=== PATIENT | female | born 1980 | race Caucasian/White ===

== ENCOUNTER → 2018-02-09 17:08 | Outpatient (CLI) | payer OTHER, SELFPAY ==
--- NOTE | 2018-02-09 | DI.MRI.S_ITS ---
PROCEDURE: MR ELBOW RT WO CON INDICATIONS: 37 year-old female with right elbow pain after crossfit injury one month ago. TECHNIQUE: Noncontrast coronal proton density fast spin echo and T2 fast spin echo with fat saturation, axial and sagittal T1 spin echo and T2 fast spin echo with fat saturation through the elbow. COMPARISON: [facility] [place], CR, XR ELBOW 3+ VIEWS RIGHT, 01/31/2018, 15:34. FINDINGS: Image quality: Excellent. Lateral structures: The lateral ulnar collateral ligament and radial collateral ligament both appear intact. The overlying common extensor tendon also appears normal. On sagittal image 10 and axial image 15, note is made of a prominent posterior synovial fold in the radiocapitellar compartment. Medial structures: The ulnar collateral ligament appears intact. The overlying common flexor tendon appears normal. The ulnar nerve appears normal in size and signal within the cubital tunnel. Anterior structures: The biceps and brachialis tendons both appear intact as they insert onto the proximal radius and ulna, respectively. No bicipitoradial bursal fluid. The median and radial neurovascular bundles appear normal; no focal muscle atrophy to suggest nerve impingement. Posterior structures: The conjoint triceps tendon from the long and lateral heads appears intact. The medial head of the triceps tendon also appears normal, with direct muscle insertion onto the olecranon. No olecranon bursal fluid. Bone and cartilage: No bone marrow contusions or fractures. No osteochondral injuries. IMPRESSION: 1. No acute internal derangement of the right elbow. 2. 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 Dictated by: Bill Vang M.D. on 02/10/2018 at 8:40 Approved by: Bill Vang M.D. on 02/10/2018 at 8:48
== END ==
PROVIDERS: PCP Family Medicine; Visit Provider Orthopaedic Surgery
DX: M25.521 Pain in right elbow (principal)
CPT/HCPCS: 73222

== ENCOUNTER → 2018-06-20 13:06 | Outpatient (CLI) | payer OTHER, SELFPAY ==
--- NOTE | 2018-06-20 13:08 | DI.RAD.S_ITS ---
PROCEDURE: XR CHEST 2V INDICATIONS: cough TECHNIQUE: 2 views of the chest were acquired. COMPARISON: None. FINDINGS: Surgical changes and devices: None. Lungs and pleura: No pleural effusions or pneumothorax. Lungs are clear. Mediastinum: Mediastinal contours are normal. Heart size is normal. Bones and chest wall: No suspicious bony abnormalities. Soft tissues appear unremarkable. IMPRESSION: No acute disease Dictated by: Liang Leigh M.D. on 06/20/2018 at 17:29 Approved by: Liang Leigh M.D. on 06/20/2018 at 17:30
== END ==
PROVIDERS: PCP Family Medicine; Visit Provider Physician Assistant
DX: R05 Cough (principal)
CPT/HCPCS: 71046

== ENCOUNTER → 2020-01-18 15:41 | Outpatient (CLI) | payer OTHER, SELFPAY ==
[2020-01-18 16:42] LABS: Appearance Urine UA CLEAR; Bilirubin Urine UA NEGATIVE (NEGATIVE); Color Urine UA YELLOW; Glucose Urine UA NEGATIVE (Negative); Ketones Urine UA 1+ (NEGATIVE); Leukocyte Esterase Urine UA NEGATIVE (NEGATIVE); Nitrite Urine UA POSITIVE (Negative); Occult Blood Urine UA TRACE-LYSED (Negative); Protein Urine UA NEGATIVE (Negative); Urobilinogen Urine UA 0.2 E.U./dL (0.2)
[2020-01-18 17:07] LABS: pH Urine UA 5.5 (4.5-8.0)
[2020-01-18 17:08] LABS: Bacteria Urine Many (>30); Culture Indicated Urine Specimen Cultured; RBC Urine 1-5/HPF (0-5/HPF); Squamous Epithelial Cell Urine 1-5 /HPF (0-5/HPF); WBC Urine 1-5/HPF (0-5/HPF)
== END ==
PROVIDERS: PCP Family Medicine; Visit Provider Nurse Practitioner Family
DX: R10.2 Pelvic and perineal pain (principal); R35.0 Frequency of micturition
CPT/HCPCS: 81001; 87077; 87086; 87186

== ENCOUNTER → 2020-01-23 15:35 | Outpatient (CLI) | payer OTHER, SELFPAY | PROVIDERS: PCP Family Medicine; Visit Provider Nurse Practitioner Family | DX: N39.0 Urinary tract infection, site not specified (principal) | CPT/HCPCS: 87077; 87086 ==

== ENCOUNTER → 2020-05-24 13:09 | Outpatient (CLI) | payer OTHER, SELFPAY | PROVIDERS: PCP Family Medicine; Visit Provider Nurse Practitioner | DX: R30.0 Dysuria (principal); R10.9 Unspecified abdominal pain | CPT/HCPCS: 87086 ==

== ENCOUNTER → 2020-05-26 16:27 | Outpatient (CLI) | payer OTHER, SELFPAY ==
[2020-05-26 17:33] LABS: Add Manual Diff / Slide Review NO; Basophils Absolute Auto 0 /uL (0-100); Basophils Percent Auto 0.3 % (0-2); Eosinophils Absolute Auto 200 /uL (0-450); Eosinophils Percent Auto 2.5 % (2-4); Hematocrit 36.7 % (36-46); Hemoglobin 12.2 g/dL (12.0-16.0); Lymphocytes Absolute Auto 2000 /uL (1100-4500); Lymphocytes Percent Auto 24.3 % (25-40); Mean Corpuscular HGB Conc 33.3 % (30-36); Mean Corpuscular Hemoglobin 30.9 PG (26-34); Mean Corpuscular Volume 92.8 fL (80-100); Monocytes Absolute Auto 500 /uL (0-900); Monocytes Percent Auto 6.2 % (3-14); Neutrophils Absolute Auto 5600 /uL (1500-7000); Neutrophils Percent Auto 66.7 % (50-75); Platelet Count 258 X10^3/uL (150-400); Red Blood Cell Count 3.95 X10^6/uL (4.0-5.2); Red Cell Distribution Width 14.3 % (11.6-14.8); White Blood Cell Count 8.4 X10^3/uL (4.5-11.0)
[2020-05-26 18:06] LABS: Lipase 53 U/L (23-300)
[2020-05-26 18:07] LABS: Alanine Aminotransferase 34 IU/L (<35); Albumin Globulin Ratio 1.4 (1.0-2.8); Alkaline Phosphatase 61 U/L (38-126); Aspartate Aminotransferase 34 IU/L (14-36); BUN Creatinine Ratio 18.5 (6-22); Bilirubin Total 0.3 mg/dL (0.2-1.3); Blood Urea Nitrogen 17 mg/dL (7-17); Calcium 8.9 mg/dL (8.4-10.2); Carbon Dioxide 29 mmol/L (22-32); Chloride 102 mmol/L (98-107); Estimated Glomerular Filt Rate > 60.0 mL/min (>60); Globulin 2.9 g/dL (1.7-4.1); Glucose 107 mg/dL (70-100); HEMOLYSIS < 15 (0-50); Potassium 3.9 mmol/L (3.4-5.1); Sodium 138 mmol/L (137-145); Total Protein 6.9 g/dL (6.3-8.2)
== END ==
PROVIDERS: PCP Family Medicine; Referring Provider Nurse Practitioner; Visit Provider Nurse Practitioner
DX: R10.9 Unspecified abdominal pain (principal)
CPT/HCPCS: 36415; 80053; 83690; 85025

== ENCOUNTER → 2020-06-04 15:13 | Outpatient (CLI) | payer OTHER, SELFPAY ==
--- NOTE | 2020-06-04 15:14 | DI.CT.S_ITS ---
PROCEDURE: CT KIDNEY URETER BLADDER (KUB) INDICATIONS: left flank pain, suspect stone TECHNIQUE: Noncontrast 5 mm thick sections acquired from the diaphragms to the symphysis. 5 mm thick coronal and sagittal reformats were then performed. For radiation dose reduction, the following was used: automated exposure control, adjustment of mA and/or kV according to patient size. COMPARISON: None. FINDINGS: Image quality: Excellent. Lung bases: Lung bases are clear. No pleural effusion. Heart size is normal. Urinary system: Both kidneys are normal in size. No kidney stones. No hydronephrosis or perinephric fat stranding. Both ureters appear non-dilated throughout their expected courses. Bladder is mostly decompressed; no calcified bladder stones. Other solid organs: Liver is normal in size. Gallbladder is unremarkable. Pancreas is normal in contours. Spleen is normal in size. No adrenal nodules. Peritoneum and bowel: Unenhanced bowel loops demonstrate normal wall thickness and caliber. A few colonic diverticuli. Appendix is normal in caliber. No free fluid or air. Nodes and vessels: No retroperitoneal or mesenteric adenopathy by size criteria. Aorta and inferior vena cava are normal in caliber. Abdominal wall: No significant ventral hernias. Pelvis: No free pelvic fluid. No inguinal hernias or adenopathy. IUD centered in the uterus. Cyst in the left paramedian pelvis measuring 4.9 x 3.8 cm, (). Bones: No suspicious bony lesions. No vertebral body compression fractures. IMPRESSION: 1. No kidney stones. No hydronephrosis. 2. A few sigmoid colonic diverticuli. No diverticulosis identified. 3. Paramedian pelvic cyst measuring up to 4.9 cm. This most likely represents a left ovarian cyst. This could be the source of the patient's left-sided pain. -consider further evaluation with pelvic ultrasound. 4. No free fluid. 5. IUD centered in the uterus. Dictated by: Chava Jennings M.D. on 06/04/2020 at 15:46 Approved by: Chava Jennings M.D. on 06/04/2020 at 15:53
== END ==
PROVIDERS: PCP Family Medicine; Referring Provider Family Medicine; Visit Provider Family Medicine
DX: R10.9 Unspecified abdominal pain (principal); K57.30 Diverticulosis of large intestine without perforation or abscess without bleeding; N94.89 Other specified conditions associated with female genital organs and menstrual cycle; Z97.5 Presence of (intrauterine) contraceptive device
CPT/HCPCS: 74176

== ENCOUNTER → 2020-06-06 08:09 | Outpatient (CLI) | payer OTHER, SELFPAY ==
--- NOTE | 2020-06-06 08:10 | DI.US.S_ITS ---
PROCEDURE: US PELVIC COMPLETE INDICATIONS: ovarian cyst/pelvic discomfort TECHNIQUE: Real-time scanning was performed of the pelvic organs, with image documentation. Additional endovaginal scanning was necessary due to incomplete visualization of the adnexal and endometrial structures by transabdominal scanning. COMPARISON: [facility], CT, CT KIDNEY URETER BLADDER (KUB), 06/04/2020, 15:15. FINDINGS: Transabdominal scanning: Limited scanning through the kidneys shows no hydronephrosis. No pathologic free abdominal or pelvic fluid. Endovaginal scanning: Uterus: Uterus is normal in size at 7.1 x 4.8 x 3.3 cm. The endometrium measures 3.5 mm in combined thickness. An IUD is in satisfactory position. Ovaries: Right ovary measures 2.7 x 3.0 x 1.4 cm. Left ovary measures 5.3 x 4.2 x 5.1 cm. There is a simple left ovarian cyst measuring 4.8 x 4.0 x 4.4 cm. There is duplex arterial and venous flow seen in the left ovary. IMPRESSION: 1. IUD. 2. 4.8 cm maximum diameter simple cyst of the left ovary. No evidence of left ovarian torsion. Comment: SRU consensus statement on ovarian cysts recommends that in premenopausal females, ovarian cysts of less than 5 cm do not require further workup in the absence of symptoms. This Society recommends yearly ultrasound follow up of cysts of greater than 5 cm. This cyst is near the cutoff. In the absence of symptomatology, 12 month follow-up ultrasound might potentially be considered. Dictated by: Galileo Wang M.D. on 06/06/2020 at 9:11 Approved by: Galileo Wang M.D. on 06/06/2020 at 9:21
== END ==
PROVIDERS: PCP Family Medicine; Referring Provider Family Medicine; Visit Provider Family Medicine
DX: N83.292 Other ovarian cyst, left side (principal); Z97.5 Presence of (intrauterine) contraceptive device
CPT/HCPCS: 76856

== ENCOUNTER → 2020-06-12 17:17 | Outpatient (CLI) | payer OTHER, SELFPAY ==
--- NOTE | 2020-06-12 17:28 | DI.MG.S_ITS ---
BILATERAL DIGITAL SCREENING MAMMOGRAM 3D/2D WITH CAD: 06/12/2020 CLINICAL: Routine screening. Baseline exam. Family history of breast cancer. No prior exams were available for comparison. The tissue of both breasts is heterogeneously dense. This may lower the sensitivity of mammography. Current study was also evaluated with a Computer Aided Detection (CAD) system. No significant masses, calcifications, or other findings are seen in either breast. IMPRESSION: NEGATIVE There is no mammographic evidence of malignancy. A 1 year screening mammogram is recommended. This exam was interpreted at Station ID: [id number]. NOTE: For mammograms, a report in lay terms will be sent to the patient. Approximately 15% of breast malignancies will not be visualized mammographically. In the management of a palpable breast mass, a negative mammogram must not discourage biopsy of a clinically suspicious lesion. Electronically Signed By: Monica pena/padilla:06/13/2020 10:07:45 letter sent: Normal Exam ACR BI-RADS Category 1: Negative [id number]
== END ==
PROVIDERS: Family Provider Family Medicine; PCP Family Medicine; Referring Provider Family Medicine; Visit Provider Family Medicine
DX: Z12.31 Encounter for screening mammogram for malignant neoplasm of breast (principal); Z80.3 Family history of malignant neoplasm of breast
CPT/HCPCS: 77063; 77067

== ENCOUNTER → 2020-06-24 15:40 | Outpatient (CLI) | payer OTHER, SELFPAY ==
[2020-06-25 06:45] LABS: COVID19 Sendout Not Detected (Not Detect)
== END ==
PROVIDERS: Family Provider Family Medicine; PCP Family Medicine; Visit Provider Physician Assistant
DX: Z01.812 Encounter for preprocedural laboratory examination (principal)
CPT/HCPCS: 87635

== ENCOUNTER 2020-06-27 09:09 | Day surgery (SDC) | payer OTHER, SELFPAY ==
[2020-06-24 15:22] VITALS: BMI 31.4
[2020-06-27] VITALS (8 sets, daily range): BP systolic 107–121; BP diastolic 47–72; PULSE 70–105; RESP 10–18; TEMP 36.6–37.1; O2SAT 94–99; BMI 31.4
--- NOTE | 2020-06-27 | PATH_ITS ---
[facility] Accession Number: [id number] . 01 Material submitted: . PART A: FALLOPIAN/OVARY - LEFT OVARY AND FALLOPIAN TUBE PART B: peritoneum - PERITONEAL . 02 Diagnosis: A. Left Ovary and Fallopian Tube, Salpingo-oophorectomy: Benign ovary with cystic corpus luteum. Fallopian tube with no diagnostic abnormality. No evidence of neoplasia. . B. Peritoneum, Biopsy: Endometriosis. [facility] 07/02/2020 1559 Local . 02 Electronically signed: . Belén Jacob MD, Pathologist NPI- [id number] . 01 Gross description: . A. The specimen is received in formalin, labeled left ovary and fallopian tube, and consists of a 6 g, 4.0 x 2.5 x 1.5 cm intact ovary with a eng to eng-pink cerebriform capsule. Sectioning reveals a 2.0 x 1.5 x 1.2 cm, eng-pink, smooth-walled cyst which displays a eng pink, smooth inner lining with no papillary excrescences. Remaining ovarian stroma is eng-pink with corpora albicantia. Received are two segments of fallopian tube measuring 2.5 cm in length by 0.5 cm in diameter (in aggregate). The serosa is eng-pink and smooth. Sectioning reveals a eng mucosa and a stellate lumen measuring 0.1 cm in diameter. Parachute Cushion Installer sections are submitted. . A1-A2: Parachute Cushion Installer ovarian cyst. A3: Fallopian tube, entirely submitted with bisected fimbria. . B. The specimen is received in formalin, labeled peritoneal biopsy, and consists of a 3.0 x 1.2 x 0.5 cm, pink-white, membranous fragment of soft tissue which is serially sectioned and entirely submitted in cassette B1. ([id number]) /FRR 06/28/2020 1804 Local . 02 Microscopic: . B. An immunohistochemical stain for CD10 was performed to characterize the cells of interest. CD10 positive cells are present around rare glands of interest consistent with endometrial stroma. The control stain showed appropriate reactivity. . * This test was developed and its performance characteristics determined by [facility]. It has not been cleared or approved by the U.S. Food and Drug Administration. The FDA has determined that such clearance or approval is not necessary. This test is used for clinical purposes. It should not be regarded as investigational or for research. . 02 Pathologist provided ICD-10: N80.9, N83.12 . 02 CPT . 265917, 690598, [id number] Performed at: 01 [facility], [facility] [address] [id number] MD Bay Lo MD Phone: [phone] Performed at: 02 [facility] [address] [place], [place] [id number] MD Belén Jacob MD Phone: [phone]
[2020-06-27] MEDS: LACTATED RINGERS 1,000 ML 100 ML IV ×2 (09:29→11:28)
--- NOTE | 2020-06-27 09:56 | PM.PREOP ---
Pre-operative Note COVID-19 COVID-19 status: Negative Result date/Date tested (Pos, Neg/Pending): 06/24/20 Interval Note History & Physical reviewed/Exam performed by Physician: Yes Changes to H&P: No
[2020-06-27] MEDS: ACETAMINOPHEN 325 MG TABLET 975 MG PO (09:57)
--- NOTE | 2020-06-27 10:46 | SUR.OPER ---
Lithotomy on padded OR bed, head on pillow, arms secured on padded arm boards at <90 degrees abduction. Legs secured in padded yellow fins stirrups.
--- NOTE | 2020-06-27 10:50 | SUR.OPER ---
dentures sent to pacu with patient
[2020-06-27] MEDS: BUPIVACAINE 0.5% W/ EPI (PF) 30 ML VIAL INJ (10:52)
--- NOTE | 2020-06-27 11:44 | PM.OP.1 ---
Operative Date/Time/Diagnoses Date of procedure: 06/27/20 Time of procedure: 11:44 Pre-op diagnosis: Left lower quadrant pain and left ovarian cyst Post-op diagnosis: other (Probable endometriosis, functional ovarian cyst, adhesions of the omentum to the anterior abdominal wall) Procedure & Clinicians Procedure: Laparoscopy, lysis of adhesions, left salpingo oophorectomy, biopsy of pelvic peritoneum Same procedure as scheduled: Yes Indications: Left lower quadrant pain with left ovarian cyst. Surgeon: Carey Ortega Click Yes if Unassisted: Yes Anesthesia Type: General Operative Notes Findings: Significant number of adhesions of the omentum to the anterior abdominal wall between the umbilicus and the pubic symphysis. These were lysed. Normal uterus, ovaries with right ovarian cyst and collapsing left ovarian cyst. Status post bilateral tubal ligation. Likely endometriosis in the left broad ligament Closure Type: primary Specimen(s): other (Left tube and ovary with peritoneal biopsy) Estimated Blood Loss (mL): 20 Blood products transfused: none Procedure in detail: Patient was brought to the operating room where she underwent general anesthesia. She was placed in low yellowfin stirrups and prepped and draped in usual sterile fashion. No antibiotics were indicated.. Pulsatile stockings were in place and functional. Warming was with blankets. A sponge stick was placed in the vagina. The area of the incisions were injected with half percent Marcaine with epinephrine. An incision was made in the umbilicus with a scalpel and the Verres needle placed in the abdomen. Confirmation of correct placement of the needle was performed by withdrawing on the syringe and then allowing fluid to fall freely through the needle. The abdomen was insufflated to 3 L of CO2. A 5 mm trocar was placed under direct visualization. A 5 mm trochars was placed in the right and left lower quadrant under direct visualization after incising the skin. The 5 mm umbilical trocar was replaced with an 11 mm trocar. There did not appear to be any damage with placement of the trocars. The PK generator was used to cauterize and cut the omentum that was adhesed to the anterior abdominal wall. The left infundibulopelvic ligament followed by the broad ligament was cauterized and cut allowing removal of the left tube and ovary. These were placed in an Endo-Catch bag and brought up through the 11 mm port at the umbilicus. These were removed without spillage. An area of the left broad ligament that appeared to be a deep endometriosis was grasped and cut with scissors. The sample was sent to pathology. Bleeding was stopped with the PK generator. An area of slight oozing near the ureter was treated with Surgicel. Adequate hemostasis was noted. The CO2 was allowed to escape from the abdomen. The trochars were removed. The umbilical incision fascial layer was repaired with a [id number] suture of 0 Vicryl suture. Skin was closed with 4-0 monocryl. The patient went to recovery room in good condition. Complications: none Post-operative Condition: stable Disposition: same day surgery Plan for aftercare: Home when awake and stable
[2020-06-27] MEDS: fentaNYL 100 MCG/2 ML INJ IV ×2 (11:46→11:58)
[2020-06-27] MEDS: OXYCODONE IR 5 MG TABLET PO ×2 (11:49→12:28)
--- NOTE | 2020-06-27 12:30 | SUR.PHASEI ---
Dr. Ortega came and spoke to pt about surgery. Pt medicated with fentanyl and percolone. To OPD, stable
== END 2020-06-27 12:55 | disposition home or self-care (01) ==
PROVIDERS: Family Provider Family Medicine; PCP Family Medicine; Referring Provider Family Medicine; Visit Provider Specialist
PROC: (CPT 58661; principal; 2020-06-27 10:15)
DX: N80.9 Endometriosis, unspecified (principal); K66.0 Peritoneal adhesions (postprocedural) (postinfection); F41.9 Anxiety disorder, unspecified; F32.9 Major depressive disorder, single episode, unspecified; J45.909 Unspecified asthma, uncomplicated; E66.9 Obesity, unspecified; Z68.34 Body mass index [BMI] 34.0-34.9, adult; N83.12 Corpus luteum cyst of left ovary
CPT/HCPCS: 58661; J1100; J1885; J2250; J2405; J2704; J3010

== ENCOUNTER → 2020-09-15 09:01 | Outpatient (CLI) | payer OTHER, SELFPAY ==
[2020-09-15 09:38] LABS: COVID19 -Nasal RAPID Negative (Negative)
== END ==
PROVIDERS: Family Provider Family Medicine; PCP Family Medicine; Visit Provider Physician Assistant
DX: Z20.822 Contact with and (suspected) exposure to COVID-19 (principal); J02.9 Acute pharyngitis, unspecified
CPT/HCPCS: 87070; 87077; 87147; 87635

== ENCOUNTER → 2020-09-26 16:23 | Outpatient (CLI) | payer OTHER, SELFPAY ==
--- NOTE | 2020-09-26 16:24 | DI.RAD.S_ITS ---
PROCEDURE: XR HIP W PEL IF DONE RT 2V INDICATIONS: acute R hip pain TECHNIQUE: AP pelvis with lateral view(s) of the right hip(s). COMPARISON: [facility], CT, CT KIDNEY URETER BLADDER (KUB), 06/04/2020, 15:15. FINDINGS: Bones: No fractures or dislocations. Pelvic ring appears intact. No suspicious bony lesions. Soft tissues: The visualized bowel gas pattern is normal. No suspicious soft tissue calcifications. Intrauterine device projected over the mid pelvis. . IMPRESSION: No definite radiographic abnormality. If pain persists with conservative management, consider cross sectional imaging such as CT or MRI for further assessment. Dictated by: Julio Cesar Amaya [facility] Interpreted: Robi Johnson MD on 09/26/2020 at 16:42 Approved by: Robi Johnson M.D. on 09/26/2020 at 16:55
== END ==
PROVIDERS: Family Provider Family Medicine; PCP Family Medicine; Referring Provider Family Medicine; Visit Provider Family Medicine
DX: M25.551 Pain in right hip (principal)
CPT/HCPCS: 73502

== ENCOUNTER → 2020-11-14 15:07 | Outpatient (CLI) | payer OTHER, SELFPAY | PROVIDERS: Family Provider Family Medicine; PCP Family Medicine; Visit Provider Registered Nurse | DX: M54.5 Low back pain (principal) | CPT/HCPCS: 87077; 87086; 87186 ==

== ENCOUNTER → 2020-12-09 16:23 | Outpatient (CLI) | payer OTHER, SELFPAY ==
[2020-12-09 16:37] LABS: Appearance Urine UA CLEAR; Bilirubin Urine UA NEGATIVE (NEGATIVE); Color Urine UA YELLOW; Glucose Urine UA NEGATIVE (Negative); Ketones Urine UA NEGATIVE (NEGATIVE); Leukocyte Esterase Urine UA NEGATIVE (NEGATIVE); Nitrite Urine UA NEGATIVE (Negative); Occult Blood Urine UA 1+ (Negative); Protein Urine UA NEGATIVE (Negative); Specific Gravity Urine UA 1.025 (1.000-1.035); Urobilinogen Urine UA 0.2 E.U./dL (0.2)
[2020-12-09 16:40] LABS: pH Urine UA 5.5 (4.5-8.0)
[2020-12-09 17:06] LABS: Bacteria Urine Moderate (10-30); Culture Indicated Urine Cult Not Indicated; RBC Urine 1-5/HPF (0-5/HPF); Squamous Epithelial Cell Urine 5-10 /HPF (0-5/HPF); WBC Urine 0-1/HPF (0-5/HPF)
== END ==
PROVIDERS: Family Provider Family Medicine; PCP Family Medicine; Referring Provider Registered Nurse; Visit Provider Registered Nurse
DX: R10.9 Unspecified abdominal pain (principal); R30.0 Dysuria
CPT/HCPCS: 81001

== ENCOUNTER → 2020-12-11 16:27 | Outpatient (CLI) | payer OTHER, SELFPAY ==
[2020-12-11 17:49] LABS: Hematocrit 38.7 % (36-46); Hemoglobin 12.8 g/dL (12.0-16.0); Mean Corpuscular HGB Conc 33.2 % (30-36); Mean Corpuscular Volume 93.4 fL (80-100); Platelet Count 305 X10^3/uL (150-400); Red Blood Cell Count 4.14 X10^6/uL (4.0-5.2); Red Cell Distribution Width 14.6 % (11.6-14.8); White Blood Cell Count 8.2 X10^3/uL (4.5-11.0)
[2020-12-11 17:52] LABS: Alanine Aminotransferase 24 IU/L (<35); Albumin 4.6 g/dL (3.5-5.0); Albumin Globulin Ratio 1.4 (1.0-2.8); Alkaline Phosphatase 76 U/L (38-126); Aspartate Aminotransferase 29 IU/L (14-36); BUN Creatinine Ratio 17.7 (6-22); Bilirubin Total 0.4 mg/dL (0.2-1.3); Blood Urea Nitrogen 14 mg/dL (7-17); Calcium 9.7 mg/dL (8.4-10.2); Carbon Dioxide 28 mmol/L (22-32); Chloride 102 mmol/L (98-107); Estimated Glomerular Filt Rate > 60.0 mL/min (>60); Globulin 3.2 g/dL (1.7-4.1); Glucose 98 mg/dL (70-100); HEMOLYSIS < 15 (0-50); Potassium 4.1 mmol/L (3.4-5.1); Sodium 140 mmol/L (137-145); Total Protein 7.8 g/dL (6.3-8.2)
[2020-12-11 17:56] LABS: Neutrophils Absolute Manual 5740 /uL (3000-5900); Total Cells Counted 100
[2020-12-11 17:57] LABS: RBC Morphology Normal Morphology
== END ==
PROVIDERS: Family Provider Family Medicine; PCP Family Medicine; Referring Provider Registered Nurse; Visit Provider Registered Nurse
DX: R10.9 Unspecified abdominal pain (principal); R23.8 Other skin changes; R31.9 Hematuria, unspecified
CPT/HCPCS: 36415; 80053; 85025; 87086

== ENCOUNTER → 2020-12-15 15:30 | Outpatient (CLI) | payer OTHER, SELFPAY ==
--- NOTE | 2020-12-15 15:30 | DI.US.S_ITS ---
PROCEDURE: US RENAL COMPLETE INDICATIONS: FLANK PAIN, HEMATURIA, REOCURRENT URINARY TRACT INFECTION TECHNIQUE: Real-time scanning was performed of the kidneys and bladder, with image documentation. COMPARISON: [facility], US, ABDOMEN COMPLETE, 09/15/2017, 11:14. [facility], CT, CT KIDNEY URETER BLADDER (KUB), 06/04/2020, 15:15. FINDINGS: Kidneys: Kidneys are normal in size. Right kidney measures 9.7 cm long; left kidney measures 10.2 cm long. Right renal cortical thickness is 1.4 cm; left renal cortical thickness is 1.4 cm. Renal cortical echotexture is normal. No hydronephrosis or nephrolithiasis. No suspicious solid mass lesions. Bladder: Pre-void bladder volume is 414 mL. Post-void residual is 8 mL. Pre-void images demonstrate no intraluminal masses or stones. On pre-void images, both ureteral jets are noted with color Doppler interrogation. (Of note, ureteral jets may not be detectable in up to 25% of cases due to insufficient differences in specific gravity between ureteral and bladder urine). Miscellaneous: No free pelvic fluid. IMPRESSION: Normal kidney, without hydronephrosis. Small postvoid residual, 8 cc. Dictated by: Camden Barragan M.D. on 12/15/2020 at 15:01 Approved by: Camden Barragan M.D. on 12/15/2020 at 15:03
== END ==
PROVIDERS: Family Provider Family Medicine; PCP Family Medicine; Referring Provider Registered Nurse; Visit Provider Registered Nurse
DX: R10.9 Unspecified abdominal pain (principal); R31.9 Hematuria, unspecified
CPT/HCPCS: 76770

== ENCOUNTER 2020-12-16 12:59 | Emergency (ER) | payer OTHER, SELFPAY ==
[2020-12-16 13:19] VITALS: BP 150/80; PULSE 104; RESP 15; TEMP 36.7; O2SAT 100; BMI 29.0
[2020-12-16 13:46] LABS: RBC Urine None Seen (0-5/HPF)
[2020-12-16 13:48] LABS: Bilirubin Urine UA NEGATIVE (NEGATIVE); Color Urine UA YELLOW; Glucose Urine UA NEGATIVE (Negative); Ketones Urine UA NEGATIVE (NEGATIVE); Leukocyte Esterase Urine UA TRACE (NEGATIVE); Nitrite Urine UA NEGATIVE (Negative); Occult Blood Urine UA NEGATIVE (Negative); Protein Urine UA NEGATIVE (Negative); Urobilinogen Urine UA 0.2 E.U./dL (0.2)
[2020-12-16 13:52] LABS: Appearance Urine UA Slightly Cloudy
[2020-12-16 14:03] LABS: Amorphous Sediment Urine 1+; Bacteria Urine Few (2-10); Culture Indicated Urine Specimen Cultured; Squamous Epithelial Cell Urine 5-10 /HPF (0-5/HPF); WBC Urine 1-5/HPF (0-5/HPF)
[2020-12-16 16:04] VITALS: BP 129/57; PULSE 66; RESP 20; TEMP 36.8; O2SAT 99
--- NOTE | 2020-12-16 16:39 | ED_ITS ---
HPI - General Adult General Chief complaint: Urogenital-Female Stated complaint: kidney pain Time Seen by Provider: 12/16/20 16:39 Source: patient Mode of arrival: Ambulatory Limitations: no limitations History of Present Illness HPI narrative: 40-year-old woman with a history of recurrent UTI with flank pain. In November did have a urinalysis that showed an essentially pansensitive E coli was initially treated with 7 days of Macrobid. Had recurrent symptoms in early December and was treated with 10 days of Septra ( currently day 3 of treatment), both of which should have been effective based on cultures. She not es that she has had increasing fatigue over the last number of weeks. She had some amoxicillin at home and took 2 weeks of this as the initial treatment for herself diagnosed UTI. Of note the E coli that did grow out was resistant to amoxicillin and Augmentin. She further notes that her brother has IgA nephropathy/Henoch-Schonlein purpura which presented with significant her itis. She to has been noticing some pruritus. She also notes a area in the left anterior flank/mid abdomen with intermittent bruising. She does not report fevers, chills, diarrhea, chest pain, dyspnea. She notes s ome superficial itching the bruising on the left side of the abdomen and dysuria. In reviewing previous UA as she has never shown any protein in her urine to suggest that she might actually also have a nephritis She did have a renal ultrasound done yesterday ordered by her primary care physician that was reassuringly normal. Related Data Home Medications Medication Instructions Recorded Confirmed Mirena 52 mg INTRAU CONT #0 ea 05/28/16 12/11/20 qiizaoh-wosuhwdgpckjl-kotuajgm 250 1 tab PO Q4-6H PRN #0 tab 01/18/20 12/11/20 mg-250 mg-65 mg tablet Previous Rx's Medication Instructions Recorded varenicline 1 mg tablet 1 mg PO BID #30 tab 08/12/20 bupropion HCl 150 mg 24 hr tablet, See Rx Instructions .ROUTE 09/23/20 extended release .COMPLEX #180 tab lorazepam 0.5 mg tablet 0.5 mg PO DAILY PRN #20 tab 11/07/20 trazodone 50 mg tablet 50 mg PO HS PRN #90 tab 11/07/20 sulfamethoxazole 800 1 tab PO Q12H 10 Days #20 tab 12/11/20 mg-trimethoprim 160 mg tablet Allergies Allergy/AdvReac Type Severity Reaction Status Date / Time No Known Drug Allergies Allergy Verified 12/16/20 13:19 Review of Systems Review of Systems ROS Unobtainable: All systems reviewed & are unremarkable except as noted in HPI and below Patient History Medical History Anxiety Cyst of left ovary Depression Obesity (BMI 30.0-34.9) Pyelonephritis Tobacco use Surgical History Status post delivery Family History Mother Breast cancer Fibromyalgia Diabetes mellitus Father COPD (chronic obstructive pulmonary disease) Grandmother No problems noted. Grandmother No problems noted. 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 Able to give a complete and coherent history. Well-nourished well-developed HEENT: Moist mucous membranes, normal sclera with reactive pupils, Respiratory: Lungs are clear to auscultation, no wheezing no rales no rhonchi. Full and symmetrical air movement Cardiac: Regular rate and rhythm no murmurs no bruits Abdomen: Soft, hematoma left mid abdomen she that looks to be 5 to 7-day-old and healing nicely., good bowel tones, she has mild suprapubic pain and mild left flank pain there is no rebound and no guarding. Skin: Warm and dry, no rashes, no purpura Neurologic: Grossly neurologically intact with no obvious asymmetries or abnormalities Extremities: No trauma, well perfused Psych: Cooperative, appropriate insight and affect Initial Vital Signs Initial Vital Signs: Vital Signs Temperature 98.1 F 12/16/20 13:19 Pulse Rate 104 H 12/16/20 13:19 Respiratory Rate 15 12/16/20 13:19 Blood Pressure 150/80 H 12/16/20 13:19 Pulse Oximetry 100 12/16/20 13:19 Course Orders Ordered: ED Orders 12/16/20 13:27 Urinalysis and Microscopic Stat Urine Culture Stat Vital Signs Vital signs: Vital Signs - 8 hr 12/16/20 13:19 12/16/20 16:04 Temperature 98.1 F 98.3 F Pulse Rate 104 H 66 Respiratory Rate 15 20 Blood Pressure 150/80 H 129/57 L Pulse Oximetry 100 99 Medical Decision Making Medical Records Medical records reviewed: Yes I reviewed the patient's medical records. Lab Data Lab results reviewed: Yes I reviewed the patient's lab results. Lab results narrative: Urine Culture Final 11/16/20-730 Organism 1 Escherichia coli [place] Count 80,000 - 90,000 CFU/ml 1. Escherichia coli M.I.C. RX --------- --- * Amoxicillin/Clavulanate 8 S * Ampicillin >=32 R * Ampicillin/Sulbactam >=32 R * Cefazolin <=4 S * Cefepime <=1 S * Ceftriaxone <=1 S * Ciprofloxacin <=0.25 S * Ertapenem <=0.5 S * Gentamicin <=1 S * Imipenem <=0.25 S * Levofloxacin <=0.12 S * Nitrofurantoin <=16 S * Tobramycin <=1 S * Trimethoprim/Sulfamethoxazole <=20 S * Piperacillin/Tazobactam <=4 S Labs: Lab Results 12/16/20 Range/Units 13:27 Urine Color Yellow Urine Appearance Slightly cloudy Urine pH 6.0 (4.5-8.0) Ur Specific [place] 1.020 (1.000-1.035) Urine Protein Negative (Negative) Urine Glucose (UA) Negative (Negative) g/dL Urine Ketones Negative (NEGATIVE) Urine Occult Blood Negative (Negative) Urine Nitrate Negative (Negative) Urine Bilirubin Negative (NEGATIVE) Urine Urobilinogen 0.2 (0.2) E.U./dL Ur Leukocyte Esterase Trace H (NEGATIVE) Urine RBC None seen (0-5/HPF) Urine WBC 1-5/hpf (0-5/HPF) Ur Squamous Epith Cells 5-10 /hpf H (0-5/HPF) Amorphous Sediment 1+ Urine Bacteria Few (2-10) H (None) Ur Culture Indicated? Specimen cultured Point of Care Testing Test Results Negative Point of care testing: Point of Care Testing Test Results Negative Imaging Data Renal ultrasound from 12/15/2020: Radiologist's Impression: FINDINGS: Kidneys: Kidneys are normal in size. Right kidney measures 9.7 cm long; left kidney measures 10.2 cm long. Right renal cortical thickness is 1.4 cm; left renal cortical thickness is 1.4 cm. Renal cortical echotexture is normal. No hydronephrosis or nephrolithiasis. No suspicious solid mass lesions. Bladder: Pre-void bladder volume is 414 mL. Post-void residual is 8 mL. Pre- void images demonstrate no intraluminal masses or stones. On pre-void images, both ureteral jets are noted with color Doppler interrogation. (Of note, ureteral jets may not be detectable in up to 25% of cases due to insufficient differences in specific gravity between ureteral and bladder urine). Miscellaneous: No free pelvic fluid. IMPRESSION: Normal kidney, without hydronephrosis. Small postvoid residual, 8 cc. Dictated by: Camden Barragan M.D. on 12/15/2020 at 15:01 MDM Narrative Medical decision making narrative: UTI and left flank symptoms without evidence of sepsis or severe pyelonephritis. Lab work is reassuring. She has minor amount of abnormalities on her urinalysis which would be consistent with day 3 of appropriate treatment with sulfa, as she currently is taking. She was worried that she may also have the IgA nephropathy with which her brother was diagnosed however she has never evidenced protinurea enter renal ultrasound is reassuringly normal. At this time, I suspect she simply has a partially treated urinary tract infection and needs to complete the 10 full days of trimethoprim sulfamethoxazole. Reassurance is given, she is safe for home discharge Discharge Plan Departure Patient Disposition: Home Clinical Impression: Urinary tract infection Qualifiers: Urinary tract infection type: acute cystitis Hematuria presence: without hematuria Qualified Code(s): N30.00 - Acute cystitis without hematuria Instructions: DI for Urinary Tract Infection (UTI) Activity Restrictions/Additional Instructions: Thank you for coming in today Your initial urine sample from mid November showed E coli, a common bacteria to cause bladder infections. The amoxicillin that you initially took would have been ineffective against this specific bacteria. The Macrobid that you took significant should have worked fairly well however if there was any involvement in the kidney it might not have been is affective. The trimethoprim sulfamethoxazole you are currently taking seems to be the perfect treatment and you need to complete the full 10 days. In looking through prior urine tests you of never had protein in your urine and your blood work today was quite reassuring. Based on this, I am less suspicious that you have Henoch-Schonlein purpura as your brother does. Your renal ultrasound done yesterday was entirely normal and very reassuring. If you have increasing symptoms, fevers, vomiting or develop new issues, please feel free to return to the emergency department. Prescriptions: No Action Mirena 1 EACH intrauterine device 52 mg INTRAU CONT Qty: 0 RF: 0 Excedrin Migraine 250-250-65 mg tablet 1 tab PO Q4-6H PRN (Reason: Migraine Headache) Qty: 0 RF: 0 varenicline 1 mg tablet 1 mg PO BID Qty: 30 RF: 0 bupropion HCl 150 mg tablet extended release 24 hr See Rx Instructions .ROUTE .COMPLEX Qty: 180 RF: 1 trazodone 50 mg tablet 50 mg PO HS PRN (Reason: insomnia) Qty: 90 RF: 1 lorazepam [Ativan] 0.5 mg tablet 0.5 mg PO DAILY PRN (Reason: anxiety) Qty: 20 RF: 0 sulfamethoxazole-trimethoprim [Bactrim DS] 800-160 mg tablet 1 tab PO Q12H 10 Days Qty: 20 RF: 0 Referrals: Margarita Salazar DO [Primary Care Provider] -
--- NOTE | 2020-12-16 17:10 | PC.NURSE ---
3rd course of abx no improvement. Had US done yesterday. Denies n/v/d or fever at home
== END 2020-12-16 17:11 | disposition home or self-care (01) ==
PROVIDERS: Emergency Medicine; Emergency Provider Emergency Medicine; Family Provider Family Medicine; PCP Family Medicine
DX: N30.00 Acute cystitis without hematuria (principal)
CPT/HCPCS: 81001; 81025; 87086; 99282; 99283

== ENCOUNTER → 2021-05-03 13:12 | Outpatient (CLI) | payer OTHER, SELFPAY | PROVIDERS: Family Provider Family Medicine; PCP Family Medicine; Referring Provider Physician Assistant; Visit Provider Physician Assistant | DX: R30.0 Dysuria (principal) | CPT/HCPCS: 87086 ==

== ENCOUNTER 2021-11-27 19:03 | Emergency (ER) | payer OTHER, SELFPAY ==
[2021-11-27 19:08] VITALS: BP 153/86; PULSE 82; RESP 18; TEMP 36.5; O2SAT 99
--- NOTE | 2021-11-27 19:13 | DI.RAD.S_ITS ---
PROCEDURE: XR CHEST 1V INDICATIONS: chest pain TECHNIQUE: One view of the chest was acquired. COMPARISON: None. FINDINGS: Surgical changes and devices: None. Lungs and pleura: Lungs are clear. No pleural effusions or pneumothorax. Mediastinum: Mediastinal contours appear normal. Heart size is normal. Bones and chest wall: No suspicious bony lesions. Overlying soft tissues appear unremarkable. IMPRESSION: No acute cardiopulmonary disease. Dictated by: Latrice Zaidi M.D. on 11/27/2021 at 20:28 Approved by: Latrice Zaidi M.D. on 11/27/2021 at 20:28
[2021-11-27 19:33] LABS: Add Manual Diff / Slide Review NO; Basophils Absolute Auto 0 /uL (0-100); Basophils Percent Auto 0.5 % (0-2); Eosinophils Absolute Auto 200 /uL (0-450); Eosinophils Percent Auto 2.7 % (2-4); Hemoglobin 12.9 g/dL (12.0-16.0); Lymphocytes Absolute Auto 2200 /uL (1100-4500); Lymphocytes Percent Auto 30.1 % (25-40); Mean Corpuscular Hemoglobin 31.3 PG (26-34); Monocytes Absolute Auto 400 /uL (0-900); Monocytes Percent Auto 4.9 % (3-14); Neutrophils Absolute Auto 4500 /uL (1500-7000); Neutrophils Percent Auto 61.8 % (50-75); Platelet Count 307 X10^3/uL (150-400); Red Blood Cell Count 4.13 X10^6/uL (4.0-5.2); Red Cell Distribution Width 13.4 % (11.6-14.8); White Blood Cell Count 7.3 X10^3/uL (4.5-11.0)
[2021-11-27 19:38] LABS: INR 0.9 (0.9-1.3); Prothrombin Time 10.5 SECONDS (10.1-12.7)
[2021-11-27 19:41] LABS: PTT Partial Thromboplastin Tim 32 SECONDS (26.4-36.2)
[2021-11-27 19:44] LABS: Alanine Aminotransferase 21 IU/L (<35); Albumin 4.6 g/dL (3.5-5.0); Albumin Globulin Ratio 1.4 (1.0-2.8); Alkaline Phosphatase 63 U/L (38-126); Aspartate Aminotransferase 27 IU/L (14-36); BUN Creatinine Ratio 20.9 (6-22); Bilirubin Total 0.6 mg/dL (0.2-1.3); Blood Urea Nitrogen 18 mg/dL (7-17); Calcium 10.1 mg/dL (8.4-10.2); Carbon Dioxide 26 mmol/L (22-32); Chloride 102 mmol/L (98-107); Creatine Kinase 99 U/L (30-135); Estimated Glomerular Filt Rate > 60.0 mL/min (>60); Globulin 3.3 g/dL (1.7-4.1); Glucose 95 mg/dL (70-100); HEMOLYSIS < 15 (0-50); Lipase 55 U/L (23-300); Magnesium 1.8 mg/dL (1.6-2.3); Potassium 3.5 mmol/L (3.4-5.1); Sodium 135 mmol/L (137-145); Total Protein 7.9 g/dL (6.3-8.2)
[2021-11-27 19:55] LABS: Troponin I < 0.012 ng/mL (0.01-0.034)
[2021-11-27] MEDS: ASPIRIN 81 MG CHEW TAB 324 MG PO (20:10)
--- NOTE | 2021-11-27 20:14 | ED.CHESTPAIN ---
HPI - Chest Pain General Chief Complaint: Chest Pain Stated Complaint: CHEST PAIN Time Seen by Provider: 11/27/21 19:32 Source: patient Mode of arrival: Ambulatory Limitations: no limitations History of Present Illness HPI narrative: Patient is a 41-year-old female here for evaluation of 3 days chest discomfort. She states that the symptoms started a couple days ago. She thought that maybe it was reflux and so she took some Tums and this did not help any the symptoms. She also has a history of anxiety and thought that potentially this was anxiety however she took a Xanax and that did not help any of her symptoms either. It has been constant for 3 days. Not worse with movement or palpation or breathing. She has no shortness of breath. No nausea vomiting. For had symptoms like this in the past. Related Data Home Medications Medication Instructions Recorded Confirmed levonorgestrel 20 mcg/24 hours (7 52 mg INTRAU CONT #0 ea 05/28/16 11/27/21 yrs) 52 mg intrauterine device (Mirena) uthhrqq-aupiqrisowxyr-lomihslj 250 1 tab PO Q4-6H PRN #0 tab 01/18/20 11/27/21 mg-250 mg-65 mg tablet (Excedrin Migraine) Previous Rx's Medication Instructions Recorded varenicline 1 mg tablet 1 mg PO BID #30 tab 08/12/20 lorazepam 0.5 mg tablet See Rx Instructions .ROUTE 03/27/21 .COMPLEX #20 tab trazodone 50 mg tablet See Rx Instructions .ROUTE 07/07/21 .COMPLEX #90 tab bupropion HCl 150 mg 24 hr tablet, See Rx Instructions .ROUTE 08/27/21 extended release .COMPLEX #180 tab Allergies Allergy/AdvReac Type Severity Reaction Status Date / Time No Known Drug Allergies Allergy Verified 11/27/21 18:55 Review of Systems Constitutional Constitutional: Reports system reviewed and no additional complaints, except as documented Cardiovascular Cardiovascular: Reports as per HPI and Reports system reviewed and no additional complaints, except as documented Respiratory Respiratory: Reports as per HPI and Reports system reviewed and no additional complaints, except as documented Gastrointestinal Gastrointestinal: Reports as per HPI and Reports system reviewed and no additional complaints, except as documented Musculoskeletal Musculoskeletal: Reports system reviewed and no additional complaints, except as documented Integumentary/Breasts Skin/Breast: Reports system reviewed and no additional complaints, except as documented Neurologic Neurologic: Reports system reviewed and no additional complaints, except as documented Hematologic/Lymphatic On Anticoagulants: No Patient History Medical History Anxiety Cyst of left ovary Depression Obesity (BMI 30.0-34.9) Pyelonephritis Tobacco use Surgical History Status post delivery Family History Mother Breast cancer Fibromyalgia Diabetes mellitus Father COPD (chronic obstructive pulmonary disease) Grandmother No problems noted. Grandmother No problems noted. 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, heroin and cocaine) Smoking Status: Current every day smoker tobacco type: vaping alcohol intake frequency: 3 or more drinks per day Substance Use Type: former substance user Exam Initial Vital Signs Initial Vital Signs: Vital Signs Temperature 97.7 F 11/27/21 19:08 Pulse Rate 82 11/27/21 19:08 Respiratory Rate 18 11/27/21 19:08 Blood Pressure 153/86 H 11/27/21 19:08 Pulse Oximetry 99 11/27/21 19:08 HENMT Head: normal to inspection and normocephalic Chest Chest: normal inspection of the chest Resp Effort & Inspection: normal respiratory effort Auscultation: clear to auscultation bilaterally Cardio Rate: regular rate Rhythm: regular rhythm GI Palpation: soft Skin General: no rashes or lesions noted Neuro General: patient alert and patient awake Extrem General: normal to inspection and capillary refill normal Scores HEART Score Heart Score history: Slightly Suspicious Heart Score EKG: Normal Heart Score Age: < 45 years old Heart Score risk factors: No known risk factors Heart Score troponin: < or = to normal limit Heart Score Total: 0 Course Orders Ordered: ED Orders 11/27/21 19:13 XR chest 1V Stat 11/27/21 19:15 EKG-12 Lead Stat 11/27/21 19:26 Complete Blood Count AUTO DIFF Stat Comprehensive Metabolic Panel Stat Lipase Stat Magnesium Stat Partial Thromboplastin Time Stat Prothrombin Time INR Stat Troponin & CK Cardiac Panel Stat Discontinued Medications Aspirin (Aspirin 81 Mg Chew Tab) 324 mg PO NOW ONE Stop: 11/27/21 19:14 Last Admin: 11/27/21 20:10 Dose: 324 mg Documented by: TIFF Vital Signs Vital signs: Vital Signs - 8 hr 11/27/21 19:08 11/27/21 20:20 Temperature 97.7 F Pulse Rate 82 60 Respiratory Rate 18 18 Blood Pressure 153/86 H 124/75 Pulse Oximetry 99 97 MDM - Chest Pain Lab Data Attestation: I reviewed the patient's lab results. Result diagrams: 11/27/21 19:26 11/27/21 19:26 Labs: Lab Results 11/27/21 11/27/21 11/27/21 Range/Units 19:26 19:26 19:26 WBC 7.3 (4.5-11.0) X10^3/uL RBC 4.13 (4.0-5.2) X10^6/uL Hgb 12.9 (12.0-16.0) g/dL Hct 38.0 (36-46) % MCV 92.0 (80-100) fL MCH 31.3 (26-34) PG MCHC 34.0 (30-36) % RDW 13.4 (11.6-14.8) % Plt Count 307 (150-400) X10^3/uL Neut % (Auto) 61.8 (50-75) % Lymph % (Auto) 30.1 (25-40) % [place] % (Auto) 4.9 (3-14) % Eos % (Auto) 2.7 (2-4) % Baso % (Auto) 0.5 (0-2) % Neut # (Auto) 4500 (8713-5726) /uL Lymph # (Auto) 2200 (9678-5647) /uL [place] # (Auto) 400 (0-900) /uL Eos # (Auto) 200 (0-450) /uL Baso # (Auto) 0 (0-100) /uL PT 10.5 (10.1-12.7) SECONDS INR 0.9 (0.9-1.3) APTT 32 (26.4-36.2) SECONDS Sodium 135 L (137-145) mmol/L Potassium 3.5 (3.4-5.1) mmol/L Chloride 102 (98-107) mmol/L Carbon Dioxide 26 (22-32) mmol/L BUN 18 H (7-17) mg/dL Creatinine 0.86 (0.52-1.04) mg/dL Estimated GFR > 60.0 (>60) mL/min BUN/Creatinine Ratio 20.9 (6-22) Glucose 95 (70-100) mg/dL Calcium 10.1 (8.4-10.2) mg/dL Magnesium 1.8 (1.6-2.3) mg/dL Total Bilirubin 0.6 (0.2-1.3) mg/dL AST 27 (14-36) IU/L ALT 21 (<35) IU/L Alkaline Phosphatase 63 (38-126) U/L Total Creatine Kinase 99 (30-135) U/L CK-MB (CK-2) TNP CK-MB (CK-2) Rel Index TNP Troponin I < 0.012 (0.01-0.034) ng/mL Total Protein 7.9 (6.3-8.2) g/dL Albumin 4.6 (3.5-5.0) g/dL Globulin 3.3 (1.7-4.1) g/dL Albumin/Globulin Ratio 1.4 (1.0-2.8) Lipase 55 (23-300) U/L Imaging Data Chest x-ray: Radiologist's Impression: [address] [address] XRay Report Signed Patient: Nedra Woo MR#: [id number] : 1980 Acct:[id number] Age/Sex: 41 / F Date of Service: 11/27/21 Loc: ED Accession Number: [id number] ?? Procedure: XR chest 1V Ordering Provider: Ricardo Schaeffer D.O. PROCEDURE:? XR CHEST 1V ? INDICATIONS:? chest pain ? TECHNIQUE:? One view of the chest was acquired.? ? COMPARISON:? None. ? FINDINGS:? ? Surgical changes and devices:? None.? ? Lungs and pleura:? Lungs are clear.? No pleural effusions or pneumothorax.? ? Mediastinum:? Mediastinal contours appear normal.? Heart size is normal.? ? Bones and chest wall:? No suspicious bony lesions.? Overlying soft tissues appear unremarkable.? ? IMPRESSION:? No acute cardiopulmonary disease.? ? ? Dictated by: Latrice Zaidi M.D. on 11/27/2021 at 20:28 ? ? Approved by: Latrice Zaidi M.D. on 11/27/2021 at 20:28?? ECG Data Attestation: I personally reviewed and interpreted this ECG as follows: Interpretation: Sinus rhythm Ventricular rate is 65 Normal axis Normal QRS Normal QTC No ST T wave changes MDM Narrative Medical decision making narrative: Patient has had 3 days of consistent symptoms with a negative troponin. Has a normal EKG. Normal chest x-ray. Is a risk heart score. Unsure the exact etiology however given the presentation today I do have low suspicion for ACS. Did discuss other potential etiologies such as GI or potentially anxiety. Will discharge home follow-up with primary provider. She was given return precautions and follow-up instructions. She expressed understanding and agreement. Discharge Plan Departure Patient Disposition: Home Clinical Impression: Atypical chest pain Instructions: DI for Atypical Chest Pain Activity Restrictions/Additional Instructions: Your workup here in the emergency department is very reassuring. Like we discussed this potentially could be other issues such as GI or potentially even anxiety. I recommend that you start on a medicine called famotidine/Pepcid. You can purchase this [id number]. Is a 1 time a day medication that you can take as needed. Contact your primary doctor for a follow-up. Return to the emergency department for any new or worsening symptoms. Prescriptions: No Action Mirena 1 EACH intrauterine device 52 mg INTRAU CONT Qty: 0 0RF Excedrin Migraine 250-250-65 mg tablet 1 tab PO Q4-6H PRN (Reason: Migraine Headache) Qty: 0 0RF varenicline 1 mg tablet 1 mg PO BID Qty: 30 0RF lorazepam 0.5 mg tablet See Rx Instructions .ROUTE .COMPLEX Qty: 20 0RF Dose Instruction: TAKE 1 TABLET BY MOUTH DAILY NEEDED FOR ANXIETY Rx Instructions: TAKE 1 TABLET BY MOUTH DAILY NEEDED FOR ANXIETY trazodone 50 mg tablet See Rx Instructions .ROUTE .COMPLEX Qty: 90 1RF Dose Instruction: TAKE 1 TABLET BY MOUTH AT BEDTIME NEEDED FOR INSOMNIA Rx Instructions: TAKE 1 TABLET BY MOUTH AT BEDTIME NEEDED FOR INSOMNIA bupropion HCl 150 mg tablet extended release 24 hr See Rx Instructions .ROUTE .COMPLEX Qty: 180 1RF Dose Instruction: TAKE 2 TABLETS BY MOUTH EVERY DAY Rx Instructions: TAKE 2 TABLETS BY MOUTH EVERY DAY Referrals: Margarita Salazar DO [Primary Care Provider] -
--- NOTE | 2021-11-27 20:16 | CM.MNRNOTE ---
pressure type pain, pt states she has been under increased stress, pt does not appear to be in any acute distress at this time
[2021-11-27 20:20] VITALS: BP 124/75; PULSE 60; RESP 18; O2SAT 97
== END 2021-11-27 20:20 | disposition home or self-care (01) ==
PROVIDERS: Emergency Provider Emergency Medicine; Family Provider Family Medicine; PCP Family Medicine
DX: R07.89 Other chest pain (principal); F17.290 Nicotine dependence, other tobacco product, uncomplicated
CPT/HCPCS: 71045; 80053; 82550; 83690; 83735; 84484; 85025; 85610; 85730; 93005; 93010; 99284

== ENCOUNTER → 2022-03-25 16:44 | Outpatient (CLI) | payer OTHER, SELFPAY ==
--- NOTE | 2022-03-25 16:45 | DI.RAD.S_ITS ---
PROCEDURE: XR RIBS LT MIN 3V W CXR1V INDICATIONS: lump on lower left ant ribs TECHNIQUE: 2 views of the left ribs were acquired, along with a single view chest. COMPARISON: None. FINDINGS: Surgical changes and devices: None. Bones and chest wall: No fractures or dislocations. No suspicious bony lesions. Overlying soft tissues appear unremarkable. Lungs and pleura: No pleural effusions or pneumothorax. Lungs appear clear. Mediastinum: Mediastinal contours appear normal. Heart size is normal. IMPRESSION: No suspicious bony lesions. No acute cardiopulmonary findings. Dictated by: Monica Merchant M.D. on 03/26/2022 at 8:07 Approved by: Monica Merchant M.D. on 03/26/2022 at 8:07
--- NOTE | 2022-03-25 16:45 | DI.US.S_ITS ---
PROCEDURE: US ABDOMEN LIMITED INDICATIONS: lump on left ant rib cage TECHNIQUE: Real-time focused scanning was performed of the abdomen, with image documentation. COMPARISON: None. FINDINGS: Area of palpable concern demonstrates a 24 x 23 x 5 mm focus of relative isoechogenicity. No increased vascularity. IMPRESSION: Focus of isoechogenicity suspicious for lipoma. Dictated by: Ana Maria Yan M.D. on 03/25/2022 at 17:41 Approved by: Ana Maria Yan M.D. on 03/25/2022 at 17:42
== END ==
PROVIDERS: Family Provider Family Medicine; PCP Family Medicine; Referring Provider Family Medicine; Visit Provider Family Medicine
DX: M89.9 Disorder of bone, unspecified (principal)
CPT/HCPCS: 71101; 76705

== ENCOUNTER → 2022-04-21 08:23 | Outpatient (CLI) | payer OTHER, SELFPAY ==
[2022-04-21 09:19] LABS: Strep Grp A by PCR Rapid Negative (Negative)
== END ==
PROVIDERS: Family Provider Family Medicine; PCP Family Medicine; Visit Provider Family Medicine
DX: J02.9 Acute pharyngitis, unspecified (principal)
CPT/HCPCS: 87651

== ENCOUNTER → 2023-01-13 16:38 | Outpatient (CLI) | payer OTHER, SELFPAY ==
--- NOTE | 2023-01-13 16:39 | DI.MG.S_ITS ---
BILATERAL DIGITAL SCREENING MAMMOGRAM 3D/2D WITH CAD: 01/13/2023 CLINICAL: Routine screening. Family history of breast cancer. Comparison is made to exam dated: 06/12/2020 mammogram - [facility]. Both breasts are heterogeneously dense, which may obscure small masses (category c / 51-75% glandular tissue). Current study was also evaluated with a Computer Aided Detection (CAD) system. There are grouped calcifications in the right breast at 12 o'clock posterior depth. These are more prominent. No other significant masses, calcifications, or other findings are seen in either breast. IMPRESSION: INCOMPLETE: NEEDS ADDITIONAL IMAGING EVALUATION The grouped calcifications in the right breast are indeterminate. Additional views with possible ultrasound are recommended. Based on Tyrer-Cuzick model (a risk assessment model), the patient's lifetime risk is 31.5% and her 10 year risk is 6.0%. If a patient has an elevated risk, a more comprehensive evaluation should be considered and/or a referral to a genetic counselor. The [place] [employer], [place] [employer], and NCCN Guidelines advise the consideration of Breast MRI as an adjunct to screening mammography in patients whose Lifetime risk to develop breast cancer is 20% or higher. This exam was interpreted at Station ID: [id number]. NOTE: For mammograms, a report in lay terms will be sent to the patient. Approximately 15% of breast malignancies will not be visualized mammographically. In the management of a palpable breast mass, a negative mammogram must not discourage biopsy of a clinically suspicious lesion. Electronically Signed By: Corona Peterson M.D. lc/:01/14/2023 08:09:01 letter sent: Additional Imaging Needed ACR BI-RADS Category 0: Incomplete [id number]
== END ==
PROVIDERS: Family Provider Family Medicine; PCP Family Medicine; Referring Provider Family Medicine; Visit Provider Family Medicine
DX: Z12.31 Encounter for screening mammogram for malignant neoplasm of breast (principal); Z80.3 Family history of malignant neoplasm of breast
CPT/HCPCS: 77063; 77067

== ENCOUNTER → 2023-01-27 08:32 | Outpatient (CLI) | payer OTHER, SELFPAY ==
--- NOTE | 2023-01-27 | DI.MG.S_ITS ---
UNILATERAL RIGHT DIGITAL DIAGNOSTIC MAMMOGRAM 3D/2D WITH ADDITIONAL VIEWS: 01/27/2023 CLINICAL: Additional evaluation requested from prior study. Comparison is made to exams dated: 01/13/2023 mammogram and 06/12/2020 mammogram - [facility]. The right breast is heterogeneously dense, which may obscure small masses (category c / 51-75% glandular tissue). There are new grouped calcifications in the right breast at 12 o'clock posterior depth compared to 2020. These are seen in additional views. No other significant masses or calcifications are seen in the breast. IMPRESSION: SUSPICIOUS OF MALIGNANCY The new grouped calcifications in the right breast are at a low suspicion for malignancy. Tomographic biopsy is recommended. Please also note patient's elevated lifetime risk as discussed below. Based on Tyrer-Cuzick model (a risk assessment model), the patient's lifetime risk is 31.5% and her 10 year risk is 6.0%. If a patient has an elevated risk, a more comprehensive evaluation should be considered and/or a referral to a genetic counselor. The [employer] [employer], [employer], and NCCN Guidelines advise the consideration of Breast MRI as an adjunct to screening mammography in patients whose Lifetime risk to develop breast cancer is 20% or higher. This exam was interpreted at Station ID: [id number]. NOTE: For mammograms, a report in lay terms will be sent to the patient. Approximately 15% of breast malignancies will not be visualized mammographically. In the management of a palpable breast mass, a negative mammogram must not discourage biopsy of a clinically suspicious lesion. Electronically Signed By: Corona Peterson M.D. lc/:01/27/2023 09:28:26 letter sent: Biopsy Required ACR BI-RADS Category 4a: Suspicious abnormality - low suspicion for malignancy 3344F
== END ==
PROVIDERS: Family Provider Family Medicine; PCP Family Medicine; Referring Provider Family Medicine; Visit Provider Family Medicine
DX: R92.8 Other abnormal and inconclusive findings on diagnostic imaging of breast (principal); R92.1 Mammographic calcification found on diagnostic imaging of breast
CPT/HCPCS: 77065; G0279

== ENCOUNTER → 2023-04-19 16:21 | Outpatient (CLI) | payer OTHER, SELFPAY ==
--- NOTE | 2023-04-19 16:22 | DI.RAD.S_ITS ---
PROCEDURE: XR ELBOW RT MIN 3V INDICATIONS: Elbow pain TECHNIQUE: 3 views of the elbow were acquired. COMPARISON: None. FINDINGS: Bones: No fractures or dislocations. No suspicious bony lesions. Soft tissues: No elbow joint effusion. No suspicious soft tissue calcifications. IMPRESSION: No acute fracture. No osseous lesion. If symptoms and/or clinical suspicion for pathology persist, further assessment with repeat, or advanced imaging (e.g., CT, MRI, or bone scan) may be helpful for further assessment. Dictated by: Lizabeth Locke M.D. on 04/20/2023 at 13:12 Approved by: Lizabeth Locke M.D. on 04/20/2023 at 13:12
== END ==
LOC: RAD 16:21
PROVIDERS: Family Provider Family Medicine; PCP Family Medicine; Referring Provider Family Medicine; Visit Provider Family Medicine
DX: M25.521 Pain in right elbow (principal)
CPT/HCPCS: 73080